=== PATIENT | male | born 1945 | race Caucasian/White ===

== ENCOUNTER 2017-03-09 12:25 | Emergency (ER) | payer MEDICARE, BC ==
[~2017-03-09] VITALS: Ht 190.5 cm; Wt 110.0 kg
[~2017-03-09 12:25] MED LIST: ASPI81 PO; CARV12.5 PO; FENO50TA PO; HYDR-3535 PO; LATA.005%O EACH EYE; PERC5TAB12 PO; PRED5PAK PO; PRIS50TA PO; TIZA4 PO
[2017-03-09 12:42] VITALS: BP 119/80; PULSE 65; RESP 18; TEMP 97.8; O2SAT 97
[2017-03-09] MEDS ORDERED: ASPI81CH7 CHEW (13:05)
[2017-03-09] MEDS ORDERED: [UNRECOGNIZED DRUG - CODE] PO (13:05)
[2017-03-09] MEDS ORDERED: DULO1CAP3 PO (13:05)
[2017-03-09] MEDS ORDERED: LATA0.002 EACH EYE (13:05)
[2017-03-09] MEDS ORDERED: HYDR25TA5 PO (13:05)
[2017-03-09] MEDS ORDERED: DICL75TA PO (13:05)
[2017-03-09] MEDS ORDERED: TIZA4CAP3 PO (13:05)
[2017-03-09] MEDS ORDERED: LISI40TA PO (13:05)
[2017-03-09] MEDS ORDERED: CARV12.52 PO (13:05)
[2017-03-09] MEDS ORDERED: FENO145T2 PO (13:05)
[2017-03-09] MEDS ORDERED: FAMC250T PO (13:08)
[2017-03-09] MEDS ORDERED: PRED20 PO (13:08)
--- NOTE | 2017-03-09 13:09 | PD ---
HPI Chief Complaint: Neuro Symptoms/ Deficits Time Seen by Provider: 12:34 Travel History International Travel<30 days: No Contact w/Intl Traveler<30days: No Traveled to known affect area: No History of Present Illness HPI 72 yo M has had approximately 48 hours R facial drop. No extremity weakness or numbness. 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 Onset sudden. Timing constant. No headache, dizziness or neurologic complaint otherwise. No rash. Onset gradual. Spasms about the lower lip along the right lateral margin observed. PFSH Past Medical History Blood Disorders: No Anxiety: Yes Cancer: Yes (skin cancer removed) Cardiovascular Problems: Yes High Cholesterol: Yes Diminished Hearing: Yes Endocrine: No Glaucoma: Yes (right eye pre) Genitourinary: No Hypertension: Yes Immune Disorder: No Neurologic: No Psychiatric: Yes Reproductive: No Respiratory: No Immunizations Current: Yes Tetanus Vaccination: < 5 Years Influenza Vaccination: Yes Past Surgical History Eye Surgery: Yes (vitaliy cataract surgery and left eye glaucoma) Other Surgery: Yes (varicose veins) Social History Alcohol Use: Yes (beer occ or wine) Tobacco Use: No Substance Use: No Allergies-Medications (Allergen,Severity, Reaction): Coded Allergies: No Known Allergies (Unverified , 03/09/17) Reported Meds & Prescriptions Reported Meds & Active Scripts Active Prednisone 20 Mg Tab 40 Mg PO DAILY 4 Days Take 40 mg (2 tablets) daily for 5 days Famciclovir 250 Mg Tab 250 Mg PO TID 10 Days Reported Aspirin Children's (Aspirin) 81 Mg Chew 81 Mg CHEW DAILY Hydrochlorothiazide 25 Mg Tab 25 Mg PO DAILY Tizanidine (Tizanidine HCl) 4 Mg Cap 4 Mg PO TID Diclofenac Sodium DR (Diclofenac Sodium) 75 Mg Tabdr 75 Mg PO BID PRN Lisinopril 40 Mg Tab 40 Mg PO DAILY Fenofibrate 145 Mg Tab 145 Mg PO DAILY Carvedilol 12.5 Mg Tab 12.5 Mg PO BID Duloxetine DR (Duloxetine HCl) 60 Mg Capdr 60 Mg PO BID [areds-2] 1 Tab PO BID Latanoprost Opth Drops (Latanoprost) 0.005% Drops 1 Drop EACH EYE HS Refrigerate until opened. Review of Systems Except as stated in HPI: all other systems reviewed are Neg General / Constitutional: No: Fever Neurologic: No: Weakness Physical Exam Narrative GENERAL: WNWD 72, yo M, NAD SKIN: Warm and dry. Right buttock has a raised erythematous minimall tender lesion approx 1 cm in greatest diameter with expressable purulent discharge. No furuncle/carbuncle. No drainable abscess. HEAD: Atraumatic. Normocephalic. EYES: Pupils equal and round. No scleral icterus. No injection or drainage. ENT: No nasal bleeding or discharge. Mucous membranes pink and moist. NECK: Trachea midline. No JVD. CARDIOVASCULAR: Regular rate and rhythm. RESPIRATORY: No accessory muscle use. Clear to auscultation. Breath sounds equal bilaterally. GASTROINTESTINAL: Abdomen soft, non-tender, nondistended. Hepatic and splenic margins not palpable. MUSCULOSKELETAL: Extremities without clubbing, cyanosis, or edema. No obvious deformities. NEUROLOGICAL: Awake and alert. Weakness along temporal, zygomatic and buccal branches of CNVII on the right side. Motor function normal bilateral upper and lower extremities. PSYCHIATRIC: Appropriate mood and affect; insight and judgment normal. Data Data Last Documented VS Vital Signs Date Time Temp Pulse Resp B/P (MAP) Pulse Ox O2 Delivery O2 Flow Rate FiO2 03/09/17 13:27 03/09/17 13:20 65 18 98 Room Air 03/09/17 12:42 97.8 Orders Orders Prednisone (Deltasone) (03/09/17 13:15) Wound Culture And Gram Stain (03/09/17 13:18) MDM Medical Decision Making Medical Screen Exam Complete: Yes Emergency Medical Condition: Yes Differential Diagnosis Guevara's palsy, stroke, TIA, complex migraine Narrative Course Pt has Guevara's Palsy. Steroids and famciclovir. Follow up with PMD. Return precautions discussed. Culture of buttocks wound sent. Buttocks wound is approx 1 cm and draining spontaneously such that antibiotics safely deferred. Diagnosis Primary Impression: Guevara's palsy Additional Impression: Abscess of buttock, right Referrals: Mary Young MD 2 days Additional Instructions: You have a choice when it comes to health care, and we are glad that you chose [facility]. Hopefully, we have met your expectations on today's visit. You are welcome to return to [facility] at any time, as we are committed to meeting the health care needs of our community. Med/Other Pt SpecificInfo: Prescription(s) given Scripts Prednisone (Prednisone) 20 Mg Tab 40 MG PO DAILY for 4 Days, #8 TAB 0 Refills Take 40 mg (2 tablets) daily for 5 days Prov: Shelton Duncan MD 03/09/17 Famciclovir (Famciclovir) 250 Mg Tab 250 MG PO TID for Mgmt Viral Infection for 10 Days, TAB 0 Refills Prov: Shelton Duncan MD 03/09/17 Disposition: 01 DISCHARGE HOME Condition: Stable Shelton Duncan MD Mar 09, 2017 13:09
[2017-03-09] MEDS ORDERED: predniSONE 20 MG TAB PO ONE (13:15)
[2017-03-09 13:20] VITALS: BP 138/85; PULSE 65; RESP 18; O2SAT 98
[2017-03-10] MEDS ORDERED: MULT10CA PO (19:04)
== END 2017-03-09 13:28 | disposition home or self-care (01) ==
LOC: PHED 12:25
DX: G51.0 Bell's palsy (principal); L02.31 Cutaneous abscess of buttock; E78.00 Pure hypercholesterolemia, unspecified; H91.90 Unspecified hearing loss, unspecified ear; I10 Essential (primary) hypertension; Z85.828 Personal history of other malignant neoplasm of skin; H40.9 Unspecified glaucoma; A49.01 Methicillin susceptible Staphylococcus aureus infection, unspecified site
CPT/HCPCS: 86403; 87070; 87186; 99284; J7512; 87205